=== PATIENT | female | born 1995 | race Caucasian/White ===

== ENCOUNTER 2022-02-15 13:54 | Emergency (ER) | payer OTHER, MEDICAID, SELFPAY ==
[2022-02-15 13:59] VITALS: BP 135/75; PULSE 100; RESP 19; TEMP 36.9; O2SAT 100; BMI 30.6
--- NOTE | 2022-02-15 14:04 | DI.US.S_ITS ---
PROCEDURE: US OB <= 14 WEEKS FETUS INDICATIONS: + preg, LMP 12/29/21, spotting, pain OUTSIDE/PRIOR DATING DATA: Last menstrual period (LMP): 12/29/21 LMP-based estimated date of delivery ([facility]): 10/15/22. First dating scan (date and location): This study. Estimated date of delivery ([facility]) from first dating scan: 08/25/21. The calculations are made using the current [facility] of 08/25/21. TECHNIQUE: Real-time scanning was performed of the fetus and maternal pelvic organs, with image documentation. Endovaginal scanning was also performed to better visualize the fetus and maternal ovaries. COMPARISON: None. FINDINGS: Embryo: Single living intrauterine gestation with composite gestational age from BPD, head circumference, abdominal circumference and femur length of 12 weeks 5 days. Currently the placenta which is anterior extends to abut the internal os of the cervical canal, a marginal placenta. BPD 1.8 cm, 12 weeks 5 days Head circumference 7.0 cm, 12 weeks 6 days Abdominal circumference 6.3 cm, 13 weeks 0 days Femur length 0.8 cm, 12 weeks 3 days Heart rate: 162 beats per minute Maternal organs: Ovaries normal considering gestational status. IMPRESSION: The gestational age from LMP is significantly different from that of the current ultrasound study. This likely represents inaccurate LMP dating information. The current findings are internally consistent with a gestational age of 12 weeks 5 days, plus or minus 10 days. Please note that the anterior placenta approaches to the anterior margin of the cervical os, but accurate placental positioning is somewhat limited at this earlier phase of . For this reason follow-up assessment of placental positioning is recommended at time of anatomic survey later in this . Dictated by: Kedar Reyes M.D. on 02/15/2022 at 14:49 Approved by: Kedar Reyes M.D. on 02/15/2022 at 14:55
[2022-02-15 14:26] LABS: Add Manual Diff / Slide Review NO; Basophils Absolute Auto 0 /uL (0-100); Basophils Percent Auto 0.4 % (0-2); Eosinophils Absolute Auto 100 /uL (0-450); Hematocrit 35.4 % (36-46); Hemoglobin 11.7 g/dL (12.0-16.0); Lymphocytes Absolute Auto 1300 /uL (1100-4500); Lymphocytes Percent Auto 17.2 % (25-40); Mean Corpuscular HGB Conc 32.9 % (30-36); Mean Corpuscular Hemoglobin 27.5 PG (26-34); Mean Corpuscular Volume 83.5 fL (80-100); Monocytes Absolute Auto 500 /uL (0-900); Monocytes Percent Auto 6.5 % (3-14); Neutrophils Absolute Auto 5800 /uL (1500-7000); Neutrophils Percent Auto 74.9 % (50-75); Platelet Count 235 X10^3/uL (150-400); Red Blood Cell Count 4.24 X10^6/uL (4.0-5.2); Red Cell Distribution Width 13.1 % (11.6-14.8); White Blood Cell Count 7.7 X10^3/uL (4.5-11.0)
[2022-02-15 15:06] LABS: Alanine Aminotransferase 21 IU/L (<35); Albumin 4.6 g/dL (3.5-5.0); Albumin Globulin Ratio 1.4 (1.0-2.8); Alkaline Phosphatase 57 U/L (38-126); Aspartate Aminotransferase 21 IU/L (14-36); Bilirubin Total 1.1 mg/dL (0.2-1.3); Blood Urea Nitrogen 8 mg/dL (7-17); Calcium 9.3 mg/dL (8.4-10.2); Carbon Dioxide 20 mmol/L (22-32); Chloride 105 mmol/L (98-107); Estimated Glomerular Filt Rate > 60 mL/min (>60); Globulin 3.3 g/dL (1.7-4.1); Glucose 94 mg/dL (70-100); HEMOLYSIS < 15 (0-50); Potassium 3.1 mmol/L (3.4-5.1); Sodium 136 mmol/L (137-145); Total Protein 7.9 g/dL (6.3-8.2)
[2022-02-15 15:45] LABS: HCG Quantitative /Beta subunit 24862 mIU/mL
[2022-02-15 17:55] LABS: Appearance Urine UA SL CLOUDY; Bilirubin Urine UA NEGATIVE (NEGATIVE); Color Urine UA YELLOW; Glucose Urine UA NEGATIVE (Negative); Ketones Urine UA 3+ (NEGATIVE); Leukocyte Esterase Urine UA NEGATIVE (NEGATIVE); Nitrite Urine UA NEGATIVE (Negative); Occult Blood Urine UA TRACE-INTACT (Negative); Protein Urine UA 1+ (Negative); Urobilinogen Urine UA 0.2 E.U./dL (0.2)
[2022-02-15 18:20] LABS: Amorphous Sediment Urine 1+; Bacteria Urine Occasional (0-1); Culture Indicated Urine Cult Not Indicated; Mucus Urine 2+ (Negative); RBC Urine 0-1/HPF (0-5/HPF); Squamous Epithelial Cell Urine 0-1 /HPF (0-5/HPF); WBC Urine 0-1/HPF (0-5/HPF)
== END 2022-02-15 17:15 | disposition left against medical advice (07) ==
PROVIDERS: Emergency Provider Emergency Medicine
DX: O20.9 Hemorrhage in early pregnancy, unspecified (principal); Z3A.01 Less than 8 weeks gestation of pregnancy
CPT/HCPCS: 76801; 80053; 81001; 84702; 85025; 86850; 86900; 86901; 99281